=== PATIENT | male | born 1995 | race Caucasian/White ===

== ENCOUNTER 2017-07-23 01:48 | Emergency (ER) | payer OTHER ==
[~2017-07-23] VITALS: Ht 172.7 cm; Wt 78.1 kg
[2017-07-23 01:54] VITALS: TEMP 36.8; Ht 172.7 cm; Wt 78.1 kg
[2017-07-23 02:20] VITALS: O2SAT 88
[2017-07-23 02:31] LABS: BUN/CREATININE RATIO 17.3 (10-20); CALCIUM 8.3 mg/dl (8.5-10.1); CREATININE 0.92 mg/dl (0.60-1.40); POTASSIUM 3.5 mmol/L (3.5-5.1)
--- NOTE | 2017-07-23 07:26 | EMERGENCY ROOM VISIT NOTE ---
History Report prepared by Derik: Jaret Vasquez Under the Supervision of: Dr. Ridge Forrester D.O. First contact with patient: 01:51 Chief Complaint: ALCOHOL OVERDOSE Stated Complaint: ALCOHOL OVERDOSE History of Present Illness The patient is a 21 year old male who presents to the Emergency Room with an alcohol overdose. EMS states the patient was found along the street with a breathalyzer of 285. They report the patient may have suicidal ideations. HPI limited secondary to the patient's intoxication. Source of History: EMS History Limited By: intoxication Review of Systems ROS limited secondary to the patient's intoxication. Past Medical & Surgical Unobtainable secondary to the patient's intoxication. Family History Unobtainable secondary to the patient's intoxication. Social History Alcohol Use: heavy Occupation Status: [employer] student Current/Historical Medications No Active Prescriptions or Reported Meds Allergies Coded Allergies: No Known Allergies (Unverified , 07/23/17) Physical Exam Vital Signs Date Time Temp Pulse Resp B/P (MAP) Pulse Ox O2 Delivery O2 Flow Rate FiO2 07/23/17 06:16 79 22 94 07/23/17 06:01 108/48 07/23/17 05:46 78 23 93 07/23/17 05:41 77 23 94 07/23/17 05:31 115/51 07/23/17 05:11 91 25 95 07/23/17 05:07 91 07/23/17 05:01 123/63 07/23/17 04:57 129/75 07/23/17 04:45 122/50 07/23/17 04:41 135 25 07/23/17 04:36 129 14 96 07/23/17 04:31 112/36 07/23/17 04:06 90 0 95 07/23/17 04:01 94/35 07/23/17 03:36 87 0 96 07/23/17 03:31 92/31 07/23/17 03:18 123 18 99 07/23/17 03:01 109/71 07/23/17 02:48 107 12 98 07/23/17 02:33 113/57 07/23/17 02:30 136/63 07/23/17 02:20 88 Room Air 3.0 07/23/17 02:18 118 17 90 07/23/17 02:01 128 07/23/17 02:01 123/66 07/23/17 01:58 95 Room Air 07/23/17 01:54 36.8 126 20 144/64 95 Room Air 07/23/17 01:52 144/64 Physical Exam CONSTITUTIONAL/VITAL SIGNS: Reviewed / noted above. GENERAL: Non-toxic in appearance. INTEGUMENTARY: Warm, dry, and [place]. HEAD: Normocephalic. EYES: without scleral icterus or trauma. ENT/OROPHARYNX: clear and moist. LYMPHADENOPATHY/NECK: Is supple without lymphadenopathy or meningismus. RESPIRATORY: Lungs clear and equal. CARDIOVASCULAR: Regular rate and rhythm. GI/ABDOMEN: Soft and nontender. No organomegaly or pulsatile mass. No rebound or guarding. Normal bowel sounds. EXTREMITIES: Warm and well perfused. BACK: No CVA tenderness. NEUROLOGICAL: Slurred speech, not responding completely to questions asked. PSYCHIATRIC: normal affect. MUSCULOSKELETAL: Normally developed with good muscle tone. Medical Decision & Procedures Laboratory Results 07/23/17 02:00 Test 07/23/17 02:00 Anion Gap 10.0 mmol/L (3-11) Est Creatinine Clear Calc Drug Dose 123.9 ml/min Estimated GFR () 138.3 Estimated GFR (Non- 119.3 BUN/Creatinine Ratio 17.3 (10-20) Calcium Level 8.3 mg/dl (8.5-10.1) Ethyl Alcohol mg/dL 339.0 mg/dl (0-3) Laboratory results as stated above per my review. ED Course 0151: Previous medical records were reviewed. The patient was evaluated in room A12B. A complete history and physical examination was performed. Medical Decision There is no evidence of other toxic ingestions, trauma, anemia, hypoglycemia, head injury or intracranial pathology, meningitis, encephalitis, acute intrathoracic or abdominal pathology or other metabolic condition. The patient remained in an aspiration precaution position during his ED stay. The patient remained on the monitor without ectopy. Pulse ox was never shown any evidence of hypoxia. Blood pressure never showed significant hypotension. The patient was observed during the entire night and awoke in the morning. The mental status improved and the patient was awake alert and oriented and was felt stable for discharge. Patient was discharged home. Impression Primary Impression: Alcoholic intoxication Scribe Attestation The scribe's documentation has been prepared under my direction and personally reviewed by me in its entirety. I confirm that the note above accurately reflects all work, treatment, procedures, and medical decision making performed by me. Departure Information Dispostion Home / Self-Care Prescriptions No Active Prescriptions or Reported Meds Patient Instructions Alcohol Intoxication - [facility], My [facility] Additional Instructions Avoid alcohol consumption.
[2017-07-23 10:10] VITALS: BP 107/70; PULSE 70; O2SAT 98
== END 2017-07-23 10:40 | disposition home or self-care (01) ==
LOC: C.EDA 01:51
DX: F10.920 Alcohol use, unspecified with intoxication, uncomplicated (principal); Y90.8 Blood alcohol level of 240 mg/100 ml or more